=== PATIENT | female | born 1970 ===

== ENCOUNTER 2018-11-22 03:49 | Inpatient (IN) | payer OTHER ==
[~2018-11-22] VITALS: Ht 162.6 cm; Wt 82.6 kg
[2018-11-22 08:20] VITALS: BP 118/79
[2018-11-22 08:28] VITALS: BP 109/73
[2018-11-22] MEDS ORDERED: MECL25TA4 PO (09:10)
[2018-11-22] MEDS ORDERED: IBUPROFEN 200 MG TABLET ONE ×2 (11:20→18:06)
[2018-11-22 11:23] LABS: HCT (SEDRATE) 45.8 % (34.6-47.8)
[2018-11-22] MEDS ORDERED: PLEASE ENTER ALLERGIES MC SCH (11:30)
[2018-11-22 11:32] LABS: CHOLESTEROL, TOTAL 216 mg/dL (140-239); TRIGLYCERIDES 102 mg/dL (50-200); VLDL CHOLESTEROL 20 mg/dL (0-25)
[2018-11-22] MEDS: VERAPAMIL 80MG TABLET PO SCH ×2 (11:33→11:42)
[2018-11-22] MEDS: ENOXAPARIN 40 MG/0.4 ML SQ SCH (11:33)
[2018-11-22] MEDS: SODIUM CHLORIDE FLUSH 10ML SYR IVF SCH ×2 (11:34→21:12)
[2018-11-22 11:36] LABS: CHOL/HDL RATIO 5.7; HDL CHOL % 18 % (28-40); HDL CHOLESTEROL (DIRECT) 38 mg/dL (40-60); LDL CHOLESTEROL,CALCULATED 158 mg/dL (54-169); LDL/HDL RATIO 4.2 (0.5-3.0); TROPONIN I < 0.015 ng/mL (0.000-0.045)
[2018-11-22] MEDS: NICOTINE 14MG/24 HR PATCH.TD24 TD SCH (11:41)
[2018-11-22] MEDS ORDERED: SUMATRIPTAN 6MG/0.5ML SQ ONE (12:30)
[2018-11-22 12:58] LABS: HEMOGLOBIN A1C 5.4 % (4.2-6.3)
[2018-11-22 14:59] VITALS: BP 112/78
[2018-11-22 16:48] LABS: TROPONIN I < 0.015 ng/mL (0.000-0.045)
[2018-11-22] MEDS: IBUPROFEN 600 MG TABLET PO PRN (18:11)
[2018-11-22 19:45] VITALS: BP 119/79
[2018-11-22] MEDS: FAMOTIDINE 20 MG TABLET PO SCH (21:12)
[2018-11-22] MEDS: MECLIZINE CHEWABLE 25 MG TAB PO PRN (22:31)
[2018-11-22 23:21] LABS: TROPONIN I < 0.015 ng/mL (0.000-0.045)
[2018-11-23] MEDS ORDERED: IBUPROFEN 200 MG TABLET ONE (03:32)
[2018-11-23] MEDS: IBUPROFEN 600 MG TABLET PO PRN ×3 (03:34→18:23)
[2018-11-23 03:35] VITALS: BP 108/73
[2018-11-23 05:05] LABS: BASOPHILS # (AUTO) 0.02 x10^3/uL (0-0.1); BASOPHILS % (AUTO) 0 % (0-1); EOSINOPHILS # (AUTO) 0.02 x10^3/uL (0-0.4); EOSINOPHILS % (AUTO) 0 % (1-7); LYMPHOCYTES # (AUTO) 2.01 x10^3/uL (1-3.4); LYMPHOCYTES % (AUTO) 24 % (22-44); MD NO; MEAN CORPUSCULAR HEMOGLOBIN 28.8 pg (27.0-34.8); MEAN CORPUSCULAR HGB CONC 33.4 g/dL (32.4-35.8); MEAN CORPUSCULAR VOLUME 86.3 fL (80-100); MEAN PLATELET VOLUME 9.3 fL (7.4-10.4); MONOCYTES # (AUTO) 0.04 x10^3/uL (0.2-0.8); MONOCYTES % (AUTO) 0 % (2-9); NEUTROPHILS # (AUTO) 6.37 x10^3/uL (1.8-6.8); NEUTROPHILS % (AUTO) 75 % (42-75); PLATELET COUNT 267 x10^3/uL (130-400); RED BLOOD COUNT 5.38 x10^6/uL (3.82-5.3); RED CELL DISTRIBUTION WIDTH 14.2 % (9.6-15.2)
[2018-11-23 05:12] LABS: ALANINE AMINOTRANSFERASE 62 U/L (12-78); ALBUMIN 3.8 g/dL (3.4-5.0); ANION GAP 8 mmol/L (5-15); CALCIUM 9.1 mg/dL (8.5-10.1); CHLORIDE 109 mmol/L (98-107); CREATININE 0.84 mg/dL (0.55-1.02)
[2018-11-23 05:15] LABS: ALKALINE PHOSPHATASE 125 U/L (45-117); BILIRUBIN,TOTAL 0.8 mg/dL (0.2-1.0); TOTAL PROTEIN 8.4 g/dL (6.4-8.2)
[2018-11-23 07:41] VITALS: BP 102/68
[2018-11-23] MEDS: FAMOTIDINE 20 MG TABLET PO SCH ×2 (08:57→21:13)
[2018-11-23] MEDS: NICOTINE 14MG/24 HR PATCH.TD24 TD SCH (08:57)
[2018-11-23] MEDS: SODIUM CHLORIDE FLUSH 10ML SYR IVF SCH ×3 (08:58→21:12)
[2018-11-23] MEDS ORDERED: SODIUM CHLORIDE 0.9% 1,000 ML IV SCH (11:30)
[2018-11-23] MEDS: ENOXAPARIN 40 MG/0.4 ML SQ SCH (11:56)
[2018-11-23 13:11] VITALS: BP 109/71
[2018-11-23 19:06] VITALS: BP 128/82
[2018-11-23] MEDS ORDERED: DEXTROSE 4 GM TAB.CHEW PO PRN (19:30)
[2018-11-23] MEDS ORDERED: GLUCAGON 1 MG IM PRN (19:30)
[2018-11-23] MEDS ORDERED: DEXTROSE 50%, 50ML SYRINGE IVPush PRN (19:30)
[2018-11-23] MEDS: AMITRIPTYLINE 10 MG TABLET PO SCH (21:13)
[2018-11-23] MEDS: INSULIN LISPRO 100 UNITS/ML, PEN SQ-INSULIN SCH (22:13)
[2018-11-24 03:10] VITALS: BP 98/64
[2018-11-24] MEDS: SODIUM CHLORIDE FLUSH 10ML SYR IVF SCH ×4 (07:50→21:24)
[2018-11-24] MEDS: NICOTINE 14MG/24 HR PATCH.TD24 TD SCH (07:50)
[2018-11-24 07:53] VITALS: BP 111/70
[2018-11-24] MEDS: IBUPROFEN 600 MG TABLET PO PRN (08:00)
[2018-11-24] MEDS ORDERED: IBUPROFEN 200 MG TABLET ONE (08:04)
[2018-11-24] MEDS: INSULIN LISPRO 100 UNITS/ML, PEN SQ-INSULIN SCH ×4 (08:08→21:36)
[2018-11-24] MEDS: FAMOTIDINE 20 MG TABLET PO SCH ×2 (08:09→21:25)
[2018-11-24] MEDS ORDERED: PROCHLORPERAZINE 5 MG/ML, 2ML IVPush PRN (11:00)
[2018-11-24] MEDS ORDERED: DIPHENHYDRAMINE 50 MG/ML, 1ML IVPush PRN (11:00)
[2018-11-24] MEDS ORDERED: KETOROLAC 30 MG/1 ML IVPush PRN (11:00)
[2018-11-24] MEDS: ENOXAPARIN 40 MG/0.4 ML SQ SCH (11:28)
[2018-11-24 13:31] VITALS: BP 114/73
[2018-11-24 21:21] VITALS: BP 123/80
[2018-11-24] MEDS: AMITRIPTYLINE 10 MG TABLET PO SCH (21:25)
[2018-11-25 02:52] VITALS: BP 115/78
[2018-11-25] MEDS: INSULIN LISPRO 100 UNITS/ML, PEN SQ-INSULIN SCH ×3 (07:00→16:00)
[2018-11-25] MEDS: SODIUM CHLORIDE FLUSH 10ML SYR IVF SCH ×2 (07:24→08:18)
[2018-11-25 07:51] VITALS: BP 105/70
[2018-11-25] MEDS: FAMOTIDINE 20 MG TABLET PO SCH (08:18)
[2018-11-25] MEDS: MECLIZINE CHEWABLE 25 MG TAB PO PRN (09:45)
[2018-11-25] MEDS: NICOTINE 14MG/24 HR PATCH.TD24 TD SCH (11:00)
[2018-11-25] MEDS: ENOXAPARIN 40 MG/0.4 ML SQ SCH (11:43)
[2018-11-25] MEDS ORDERED: IBUPROFEN 200 MG TABLET ONE (13:58)
[2018-11-25 15:07] VITALS: BP 114/76
[2018-11-25] MEDS ORDERED: NICO-486 TD (16:40)
[2018-11-25] MEDS ORDERED: AMIT10TA PO (16:40)
[2018-11-25] MEDS ORDERED: MECL25TA4 PO (16:40)
== END 2018-11-25 18:52 | disposition home or self-care (01) | DRG 103 ==
LOC: 5SO 07:51
PROVIDERS: ADMIT Family Medicine; ATTEND Family Medicine
DX: G43.409 Hemiplegic migraine, not intractable, without status migrainosus (principal); G81.94 Hemiplegia, unspecified affecting left nondominant side; J98.11 Atelectasis; I10 Essential (primary) hypertension; F17.210 Nicotine dependence, cigarettes, uncomplicated; E03.9 Hypothyroidism, unspecified; R29.810 Facial weakness; Z88.0 Allergy status to penicillin
CPT/HCPCS: 36415; 80053; 80061; 82962; 83036; 83735; 84439; 84443; 84484; 85025; 85651; 93005; G0378; J1650; J1885; J2930; 92523-GN; J0780; J1200; J1815; J3030; J7030